=== PATIENT | male | born 1990 | race Caucasian/White ===

== ENCOUNTER 2022-09-05 12:07 | Emergency (ER) | payer SELFPAY ==
[2022-09-05] MEDS ORDERED: Penicillin G Benzathine 1,200,000 Units/2 ML Syringe IM ONE (12:36)
[2022-09-05 14:04] LABS: C. TRACHOMATIS BY PCR NOT DETECTED; N. GONORRHOEAE BY PCR NOT DETECTED
== END 2022-09-05 14:21 | disposition home or self-care (01) ==
LOC: MW.ED 12:07
DX: Z20.2 Contact with and (suspected) exposure to infections with a predominantly sexual mode of transmission (principal)
CPT/HCPCS: 36415; 81003; 86592; 87491; 87591; 96372; 99283; J0561